=== PATIENT | female | born 1980 | race Caucasian/White ===

== ENCOUNTER → 2021-09-05 | Day surgery (SDC) | payer BC ==
[~2021-09-05] VITALS: Ht 175.3 cm; Wt 154.0 kg
[~2021-09-05] MED LIST: HYDROmorphone 2 MG/ML INJ. IVP PRN; IV RINGERS,LACTATED 1000ML 1,000 ML IV SCH; LISI40TA6 PO; MORPHINE SULFATE 2 MG/ML INJ. IVP PRN; PROCHLORPERAZINE 10 MG/2 ML VIAL. IVP PRN; PROPOFOL 10 MG/ML (20ML) VIAL. IV ONE; fentaNYL PF VIAL 100 MCG/2 ML VIAL IVP PRN
[2021-09-05 08:20] VITALS: BP 154/78
[2021-09-05 09:37] VITALS: BP 111/75
--- NOTE | 2021-09-05 12:44 | CONS ---
DATE OF CONSULTATION: 09/05/2021 UPDATED HISTORY AND PHYSICAL REASON FOR CONSULTATION: Change in bowel habits and history of polyps. HISTORY OF PRESENT ILLNESS: A 41-year-old female whose past medical history is significant for colon polyps as well as hypertension, is seen for interval exam. She has bowel habits which are alternating between diarrhea and constipation. Weight and appetite are stable. There has been no bleeding. With continued issues, she requests additional evaluation. PAST MEDICAL HISTORY: Colonic polyps and hypertension. ALLERGIES: SULFA. MEDICATIONS: Lisinopril. SOCIAL HISTORY: Nonsmoker and nondrinker. FAMILY HISTORY: Significant for colon polyps in the mother, hypertension in mother and grandmother, ovarian cancer in grandmother, and CVA with her father. PAST SURGICAL HISTORY: Significant for appendectomy and tonsillectomy. REVIEW OF SYSTEMS: Per records. PHYSICAL EXAMINATION: GENERAL: Reveals a well-nourished, well-developed female who is alert and cooperative, in no acute distress. VITAL SIGNS: Temperature 97.4, pulse 89, and respiratory rate 22. LUNGS: Clear. CARDIOVASCULAR: Reveals an S1, S2, without S3, S4 or appreciable murmur. ABDOMEN: Reveals a soft abdomen, normal bowel sounds, without appreciable hepatosplenomegaly. EXTREMITIES: Reveals no cyanosis, clubbing or edema. IMPRESSION: Change in bowel habits. History of colonic polyps. Interval exam is recommended. Differential includes inflammatory bowel disease, colon cancer, colon polyps, collagenous colitis and/or irritable bowel syndrome. Therefore, I recommend a colonoscopy. Risks and benefits discussed. The patient is willing to proceed. SONA MARAVILLA: Bc TID: [id number]
== END | disposition home or self-care (01) ==
LOC: SURG 07:56
PROVIDERS: ATTEND Internal Medicine Gastroenterology
DX: R19.4 Change in bowel habit (principal); K64.0 First degree hemorrhoids; K57.30 Diverticulosis of large intestine without perforation or abscess without bleeding; K63.89 Other specified diseases of intestine; I10 Essential (primary) hypertension; J45.909 Unspecified asthma, uncomplicated; K21.9 Gastro-esophageal reflux disease without esophagitis; F41.9 Anxiety disorder, unspecified; F32.9 Major depressive disorder, single episode, unspecified; Z79.899 Other long term (current) drug therapy; Z98.890 Other specified postprocedural states; Z86.010 Personal history of colon polyps; Z88.2 Allergy status to sulfonamides; Z82.49 Family history of ischemic heart disease and other diseases of the circulatory system
CPT/HCPCS: 45378; 81025; J2704

== ENCOUNTER → 2021-10-10 | Outpatient (CLI) | payer BC ==
[2021-09-05 09:37] VITALS: BP 111/75
[~2021-10-10] MED LIST changes: -HYDROmorphone 2 MG/ML INJ. IVP PRN; -IV RINGERS,LACTATED 1000ML 1,000 ML IV SCH; -MORPHINE SULFATE 2 MG/ML INJ. IVP PRN; +NORMAL SALINE IV ONE; -PROCHLORPERAZINE 10 MG/2 ML VIAL. IVP PRN; -PROPOFOL 10 MG/ML (20ML) VIAL. IV ONE; +SINCALIDE IV ONE; -fentaNYL PF VIAL 100 MCG/2 ML VIAL IVP PRN
--- NOTE | 2021-10-10 10:31 | RAD ---
EXAM: Abdomen sonogram. HISTORY: Early satiety. Vomiting. TECHNIQUE: Sonographic imaging of the abdomen was performed. COMPARISON: None. FINDINGS: The liver is enlarged. There is hepatic steatosis. No focal hepatic lesion is seen. The gal lbladder is unremarkable. The common bile duct, pancreas, and continued vena cava are obscured due to bowel gas and body habitus. The right kidney is normal in size. There is no hydronephrosis. IMPRESSION: 1. Hepatomegaly and hepatic steatosis. 2. Obscured midline structures due to bowel gas and body habitus. Electronically signed by: Marcella Edmondson MD (10/10/2021 10:28 AM) [facility]
--- NOTE | 2021-10-10 10:40 | RAD ---
EXAM: Nuclear hepatobiliary scan. HISTORY: Pain. TECHNIQUE: Following intravenous administration of 5.5 mCi Tc 99m Choletec, anterior images of the ab domen were obtained at five minute intervals through one hour. Subsequently, 3.08 mcg Kinevac was adm inistered and additional images to assess gallbladder ejection fraction were obtained. FINDINGS: There is prompt radiotracer uptake by the liver. No focal defect is seen. There is normal e xcretion into the biliary tree. The gallbladder is visualized within sixty minutes and there is free flow into the duodenum. The gallbladder ejection fraction is 91 percent. IMPRESSION: High gallbladder ejection fraction of 91 percent. Electronically signed by: Marcella Edmondson MD (10/10/2021 10:38 AM) [facility]
== END ==
LOC: US 07:32
PROVIDERS: ATTEND Internal Medicine Gastroenterology
DX: R16.0 Hepatomegaly, not elsewhere classified (principal); K76.0 Fatty (change of) liver, not elsewhere classified; R68.81 Early satiety
CPT/HCPCS: 76705; 78227; A9537; J2805

== ENCOUNTER → 2021-12-02 | Outpatient (CLI) | payer BC ==
[2021-09-05 09:37] VITALS: BP 111/75
[~2021-12-02] MED LIST changes: -NORMAL SALINE IV ONE; -SINCALIDE IV ONE
--- NOTE | 2021-12-02 15:18 | RAD ---
History: Abdomen pain Procedure: The patient ate a standard meal containing 2.2 mCi Tc-99m sulfur colloid. Scintigraphic images of the abdomen were obtained. Counts were obtained. Findings: Retention percentages are as follows: 1 Hr: 56 2 Hr:25 3 Hr:8 4 Hr:1 Normal Retention Percentage Range is as Follows: 1 Hr: 35-91% 2 Hr: 2.7-60% 3 Hr: 0.5-28% 4 Hr: 0-10% Impression: Time to half emptying for solids is 69 minutes which is not delayed. Electronically signed by: Kerwin Curiel MD (12/02/2021 3:16 PM) [id number]
== END ==
LOC: NM 07:57
PROVIDERS: ATTEND Internal Medicine Gastroenterology
DX: R10.9 Unspecified abdominal pain (principal)
CPT/HCPCS: 78264; A9541